=== PATIENT | male | born 1985 | race Caucasian/White ===

== ENCOUNTER 2021-05-09 16:36 | Outpatient (CLI) | payer OTHER ==
--- NOTE | 2021-05-09 17:17 | XRAY Report ---
PROCEDURE: Foot 3 View RT INDICATIONS: FOOT JOINT PAIN, RIGHT TECHNIQUE: 3 views of the foot were acquired. COMPARISON: None FINDINGS: Bones: There is a small ossification overlying the lateral cuboid bone at the area of palpable concer n. No suspicious bony lesions. Soft tissues: No tibiotalar joint effusion. Achilles tendon appears normal. IMPRESSION: Small ossification overlying the lateral cuneiform as above. Chronicity is indeterminate. Recommend c orrelation to recent trauma as small bulge and injury cannot be definitively excluded. Reviewed by: Gogo Steen MD on 05/09/2021 5:15 PM PDT Approved by: Gogo Steen MD on 05/09/2021 5:15 PM PDT Station ID: [id number]
== END 2021-05-09 23:59 | disposition home or self-care (01) ==
LOC: DI.S 16:36
PROVIDERS: ATTEND Family Medicine
DX: M79.671 Pain in right foot (principal); M89.271 Other disorders of bone development and growth, right ankle and foot